=== PATIENT | male | born 1930 | race Caucasian/White ===

== ENCOUNTER 2017-05-18 07:37 | Day surgery (SDC) | payer OTHER ==
[~2017-05-18] VITALS: Ht 172.7 cm; Wt 69.8 kg
[~2017-05-18 07:37] MED LIST: ARICEPT5 MG PO; ASPIR 8181 M1 PO; DIAMOX250 MG PO; FISH OIL 1,0001 EAC7 PO; LIPITOR10 MG PO; LISINOPRIL20 MG PO; NORVASC5 MG PO; PRESERVISION A1 EAC2 PO; TAMSULOSIN HCL0.4 MG PO; TENORMIN25 MG PO; VITAMIN B-12500 MC5 SL; VITAMIN D31000 UNIT PO; VITAMIN E400 UNIT PO
[2017-05-18 08:37] VITALS: BP 178/80
[2017-05-18 11:25] VITALS: BP 164/61
[2017-05-18 12:06] VITALS: BP 158/73
== END 2017-05-18 12:14 | disposition home or self-care (01) ==
LOC: EDBD → SDC 07:37
DX: H59.022 Cataract (lens) fragments in eye following cataract surgery, left eye (principal); H59.012 Keratopathy (bullous aphakic) following cataract surgery, left eye; I10 Essential (primary) hypertension; Z87.891 Personal history of nicotine dependence; Z79.82 Long term (current) use of aspirin
CPT/HCPCS: J0690; J2250; J3010; J3300